=== PATIENT | male | born 1960 | race African-American/Black ===

== ENCOUNTER 2020-02-18 13:32 | Inpatient (IN) | payer MEDICAID, OTHER ==
[~2020-02-18] VITALS: Ht 185.4 cm; Wt 92.8 kg
[2020-02-18] VITALS (7 sets, daily range): BP systolic 107–140; BP diastolic 53–85
[2020-02-18] MEDS ORDERED: SODIUM CHLORIDE 0.9% 1000ML BAG (SEPSIS BOLUS) IV ONE (14:15)
[2020-02-18] MEDS ORDERED: CLINDAMYCIN 600 MG in DEXTROSE 5% WATER 50 ML IV ONE (14:15)
[2020-02-18] MEDS ORDERED: PIPERACILLIN/TAZ 3.375G PREMIX 50 ML IV ONE (14:15)
[2020-02-18] MEDS ORDERED: VANCOMYCIN 1 G PREMIX 200 ML IV ONE (14:15)
[2020-02-18] MEDS ORDERED: CLINDAMYCIN 600MG PREMIX 50 ML IV SCH (14:45)
[2020-02-18 15:07] LABS: HEMATOCRIT. 31.3 % (42.0-52.0); HEMOGLOBIN. 10.1 g/dL (14.0-18.0); MEAN CORPUSCULAR HEMOGLOBIN 24.3 pg (28.0-32.0); MEAN CORPUSCULAR VOLUME 75.5 fL (80.0-94.0); MEAN PLATELET VOLUME 8.6 fl (7.4-10.4); PLATELET 367 x1000/uL (130-400); RED BLOOD CELL COUNT 4.15 mill/uL (4.7-6.1); RED CELL DISTRIBUTION WIDTH 15.7 % (11.6-14.6)
[2020-02-18 15:12] LABS: CHLORIDE 99 mEq/L (98-107)
[2020-02-18 15:16] LABS: INR 1.3; PROTHROMBIN TIME 13.4 sec (9.6-11.0)
[2020-02-18 15:18] LABS: CLARITY URINE CLEAR (CLEAR); COLOR URINE YELLOW (YELLOW); KETONES URINE 1+ (NEGATIVE); LEUKOCYTE ESTERASE URINE NEGATIVE (NEGATIVE); NITRITE URINE NEGATIVE (NEGATIVE); OCCULT BLOOD URINE NEGATIVE (NEGATIVE); PROTEIN URINE NEGATIVE (NEGATIVE); SPECIFIC GRAVITY URINE 1.027 (1.005-1.030)
[2020-02-18 16:06] LABS: PLATELET ESTIMATE NORMAL
[2020-02-18] MEDS ORDERED: INSULIN REGULAR (HUMULIN R) 300UNITS/3ML ONE (17:05)
[2020-02-18] MEDS ORDERED: FENTANYL CITRATE/PF 50MCG/ML 2ML VIAL ONE (17:30)
[2020-02-18] MEDS ORDERED: MIDAZOLAM HCL 2 MG/2 ML VIAL ONE (17:31)
[2020-02-18] MEDS ORDERED: LIDOCAINE HCL/PF 1% 10 MG/ML 5ML VIAL ONE (17:34)
[2020-02-18] MEDS ORDERED: PROPOFOL 200MG/20ML VIAL IV ONE (17:34)
[2020-02-18] MEDS ORDERED: ROCURONIUM BROMIDE 10MG/ML VIAL 5ML IV ONE (17:35)
[2020-02-18] MEDS ORDERED: SUCCINYLCHOLINE CHLORIDE 200MG/10ML IV ONE (17:35)
[2020-02-18] MEDS ORDERED: BACITRACIN 50,000 UNITS/VIAL ONE ×2 (17:48→18:54)
[2020-02-18] MEDS ORDERED: NORMAL SALINE 0.9% 10 ML SYR ONE ×2 (17:48→18:54)
[2020-02-18] MEDS ORDERED: PHENYLEPHRINE HCL 10 MG/ML 1ML (IV VIAL) IV ONE (17:48)
[2020-02-18] MEDS ORDERED: VANCOMYCIN HCL 1 GM/VIAL ONE (17:48)
[2020-02-18] MEDS ORDERED: CEFAZOLIN SODIUM 1000MG/VIAL ONE (18:10)
[2020-02-18] MEDS ORDERED: GENTAMICIN SULF 40MG/ML 2ML VIAL ONE (18:58)
[2020-02-18] MEDS ORDERED: METOCLOPRAMIDE HCL 10MG/2ML VIAL ONE (19:32)
[2020-02-18] MEDS ORDERED: ONDANSETRON HCL 4MG/2ML INJ ONE (19:32)
[2020-02-18] MEDS ORDERED: HYDROMORPHONE HCL/PF 2MG/ML CPJ IV PRN (20:00)
[2020-02-18] MEDS ORDERED: PIPERACILLIN/TAZ 3.375G PREMIX 50 ML IV SCH (20:15)
[2020-02-18] MEDS ORDERED: ONDANSETRON HCL 4MG/2ML INJ IV PRN (20:48)
[2020-02-18] MEDS ORDERED: SODIUM CHLORIDE 0.9% 1,000 ML IV SCH (20:48)
[2020-02-18] MEDS ORDERED: DEXTROSE 50% WATER 50ML SYRINGE IV PRN (20:49)
[2020-02-18] MEDS ORDERED: ACETAMINOPHEN 650MG SUPP PR PRN (20:52)
[2020-02-18] MEDS: SODIUM CHLORIDE 0.9% 1,000 ML IV SCH (21:00)
[2020-02-18] MEDS ORDERED: IOHEXOL-350 100 ML BOTTLE ONE (21:13)
[2020-02-18] MEDS ORDERED: INSULIN LISPRO 100 UNITS/ML SUBCUT NR (21:30)
[2020-02-18] MEDS: BLOOD SUGAR DIAGNOSTIC STRIP TEST SCH (23:58)
[2020-02-18] MEDS: INSULIN LISPRO 100 UNITS/ML SUBCUT SCH (23:59)
[2020-02-19] VITALS (36 sets, daily range): BP systolic 110–138; BP diastolic 67–79
[2020-02-19 00:53] LABS: HEMATOCRIT. 30.1 % (42.0-52.0); HEMOGLOBIN. 9.7 g/dL (14.0-18.0); MEAN CORPUSCULAR HEMOGLOBIN 24.2 pg (28.0-32.0); MEAN CORPUSCULAR VOLUME 75.1 fL (80.0-94.0); MEAN PLATELET VOLUME 8.5 fl (7.4-10.4); PLATELET 330 x1000/uL (130-400); RED BLOOD CELL COUNT 4.01 mill/uL (4.7-6.1); RED CELL DISTRIBUTION WIDTH 15.5 % (11.6-14.6)
[2020-02-19] MEDS: PIPERACILLIN/TAZOBACTAM 3.375 G in DEXT 5% WATER 100 ML IV SCH ×4 (01:42→18:44)
[2020-02-19] MEDS: VANCOMYCIN 1 G PREMIX 200 ML IV SCH ×3 (02:00→17:37)
[2020-02-19 05:46] LABS: PLATELET ESTIMATE NORMAL
[2020-02-19] MEDS: BLOOD SUGAR DIAGNOSTIC STRIP TEST SCH ×4 (07:43→21:00)
[2020-02-19 08:10] LABS: HEMATOCRIT. 27.9 % (42.0-52.0); MEAN CORPUSCULAR VOLUME 74.3 fL (80.0-94.0); MEAN PLATELET VOLUME 8.5 fl (7.4-10.4); PLATELET 326 x1000/uL (130-400); RED BLOOD CELL COUNT 3.76 mill/uL (4.7-6.1); RED CELL DISTRIBUTION WIDTH 15.5 % (11.6-14.6)
[2020-02-19] MEDS: SODIUM CHLORIDE 0.9% 1,000 ML IV SCH ×2 (08:10→17:37)
[2020-02-19] MEDS: INSULIN LISPRO 100 UNITS/ML SUBCUT SCH ×4 (08:12→21:28)
[2020-02-19 08:18] LABS: CHLORIDE 106 mEq/L (98-107)
[2020-02-19 08:24] LABS: PHOSPHORUS 3.5 mg/dL (2.5-4.9)
[2020-02-19] MEDS ORDERED: PANTOPRAZOLE SODIUM 40 MG/VIAL IV SCH (09:00)
[2020-02-19] MEDS ORDERED: INSULIN GLARGINE UD 100 UNITS/ML SYR SUBCUT SCH (14:00)
[2020-02-19 14:54] LABS: PLATELET ESTIMATE NORMAL
[2020-02-19] MEDS ORDERED: LINEZOLID 600 MG PREMIX 300 ML IV SCH (20:00)
[2020-02-19] MEDS: INSULIN GLARGINE UD 100 UNITS/ML SYR SUBCUT SCH (22:50)
[2020-02-20] VITALS: BP 111/64
[2020-02-20] MEDS: PIPERACILLIN/TAZOBACTAM 3.375 G in DEXT 5% WATER 100 ML IV SCH ×4 (00:56→18:07)
[2020-02-20] MEDS: SODIUM CHLORIDE 0.9% 1,000 ML IV SCH ×2 (02:27→12:58)
[2020-02-20 04:00] VITALS: BP 106/64
[2020-02-20] MEDS: OMEPRAZOLE 20MG CAPSULE EXTENDED RELEASE PO SCH ×2 (06:22→21:56)
[2020-02-20] MEDS: BLOOD SUGAR DIAGNOSTIC STRIP TEST SCH ×4 (06:22→21:56)
[2020-02-20] MEDS: INSULIN LISPRO 100 UNITS/ML SUBCUT SCH ×4 (06:27→21:00)
[2020-02-20 07:28] LABS: HEMOGLOBIN. 7.9 g/dL (14.0-18.0); MEAN CORPUSCULAR HEMOGLOBIN 24.2 pg (28.0-32.0); MEAN CORPUSCULAR VOLUME 74.1 fL (80.0-94.0); MEAN PLATELET VOLUME 8.2 fl (7.4-10.4); PLATELET 285 x1000/uL (130-400); RED BLOOD CELL COUNT 3.25 mill/uL (4.7-6.1); RED CELL DISTRIBUTION WIDTH 15.3 % (11.6-14.6)
[2020-02-20 07:51] LABS: CHLORIDE 102 mEq/L (98-107)
[2020-02-20 08:00] VITALS: BP 119/72
[2020-02-20 08:00] LABS: PHOSPHORUS 2.8 mg/dL (2.5-4.9)
[2020-02-20] MEDS: LINEZOLID 600 MG PREMIX 300 ML IV SCH ×2 (09:44→21:56)
[2020-02-20] MEDS: INSULIN GLARGINE UD 100 UNITS/ML SYR SUBCUT SCH ×2 (09:46→22:00)
[2020-02-20 12:00] VITALS: BP 113/67
[2020-02-20 12:20] LABS: PLATELET ESTIMATE NORMAL
[2020-02-20 16:00] VITALS: BP 118/73
[2020-02-20 20:00] VITALS: BP 112/64
[2020-02-21] VITALS: BP 118/68
[2020-02-21] MEDS: PIPERACILLIN/TAZOBACTAM 3.375 G in DEXT 5% WATER 100 ML IV SCH ×3 (00:52→13:24)
[2020-02-21] MEDS: SODIUM CHLORIDE 0.9% 1,000 ML IV SCH ×3 (00:53→18:25)
[2020-02-21 04:00] VITALS: BP 119/74
[2020-02-21] MEDS: OMEPRAZOLE 20MG CAPSULE EXTENDED RELEASE PO SCH ×2 (06:43→21:52)
[2020-02-21] MEDS: BLOOD SUGAR DIAGNOSTIC STRIP TEST SCH ×4 (06:43→21:00)
[2020-02-21] MEDS: INSULIN LISPRO 100 UNITS/ML SUBCUT SCH ×4 (06:53→21:00)
[2020-02-21 08:00] VITALS: BP 122/72
[2020-02-21] MEDS ORDERED: PNEUMOCOCCAL 23-VAL P-SAC VAC 0.5 ML IM ONE (08:00)
[2020-02-21] MEDS: LINEZOLID 600 MG PREMIX 300 ML IV SCH ×2 (08:34→22:07)
[2020-02-21] MEDS: INSULIN GLARGINE UD 100 UNITS/ML SYR SUBCUT SCH ×2 (11:04→21:53)
[2020-02-21 12:00] VITALS: BP 125/81
[2020-02-21 16:00] VITALS: BP 125/78
[2020-02-21] MEDS: CEFTRIAXONE 2 G in DEXTROSE 5% WATER 50 ML IV SCH (18:00)
[2020-02-21 20:00] VITALS: BP 122/70
[2020-02-22] VITALS: BP 118/74
[2020-02-22 04:00] VITALS: BP 137/74
[2020-02-22] MEDS: SODIUM CHLORIDE 0.9% 1,000 ML IV SCH ×2 (05:23→16:01)
[2020-02-22] MEDS: BLOOD SUGAR DIAGNOSTIC STRIP TEST SCH ×4 (06:10→21:16)
[2020-02-22] MEDS: INSULIN LISPRO 100 UNITS/ML SUBCUT SCH ×4 (06:11→21:00)
[2020-02-22] MEDS: OMEPRAZOLE 20MG CAPSULE EXTENDED RELEASE PO SCH ×2 (06:24→21:46)
[2020-02-22 08:00] VITALS: BP 149/86
[2020-02-22] MEDS: LINEZOLID 600 MG PREMIX 300 ML IV SCH ×2 (09:27→21:47)
[2020-02-22] MEDS: INSULIN GLARGINE UD 100 UNITS/ML SYR SUBCUT SCH ×2 (10:05→21:45)
[2020-02-22 12:00] VITALS: BP 144/80
[2020-02-22 16:00] VITALS: BP 143/76
[2020-02-22 17:07] LABS: HEMATOCRIT. 28.4 % (42.0-52.0); HEMOGLOBIN. 9.4 g/dL (14.0-18.0); MEAN CORPUSCULAR HEMOGLOBIN 24.3 pg (28.0-32.0); MEAN CORPUSCULAR VOLUME 73.8 fL (80.0-94.0); MEAN PLATELET VOLUME 7.8 fl (7.4-10.4); PLATELET 339 x1000/uL (130-400); RED BLOOD CELL COUNT 3.85 mill/uL (4.7-6.1); RED CELL DISTRIBUTION WIDTH 15.5 % (11.6-14.6)
[2020-02-22] MEDS: CEFTRIAXONE 2 G in DEXTROSE 5% WATER 50 ML IV SCH (17:16)
[2020-02-22 17:54] LABS: PLATELET ESTIMATE NORMAL
[2020-02-22 20:00] VITALS: BP 158/91
[2020-02-23] VITALS: BP 140/82
[2020-02-23] MEDS: DEXTROSE 50% WATER 50ML SYRINGE IV PRN ×2 (04:44→15:31)
[2020-02-23] MEDS: SODIUM CHLORIDE 0.9% 1,000 ML IV SCH ×2 (05:12→21:19)
[2020-02-23] MEDS: INSULIN LISPRO 100 UNITS/ML SUBCUT SCH ×4 (05:45→21:00)
[2020-02-23] MEDS: BLOOD SUGAR DIAGNOSTIC STRIP TEST SCH ×4 (05:45→21:20)
[2020-02-23] MEDS: OMEPRAZOLE 20MG CAPSULE EXTENDED RELEASE PO SCH (05:50)
[2020-02-23 08:00] VITALS: BP 143/89
[2020-02-23] MEDS ORDERED: INSULIN GLARGINE UD 100 UNITS/ML SYR SUBCUT SCH (10:00)
[2020-02-23] MEDS: LINEZOLID 600 MG PREMIX 300 ML IV SCH ×2 (10:06→21:19)
[2020-02-23 12:00] VITALS: BP 143/83
[2020-02-23 14:00] VITALS: BP 140/79
[2020-02-23 16:00] VITALS: BP_SYST 151; BP_DIAS 71; BP_DIAS 88
[2020-02-23] MEDS: CEFTRIAXONE 2 G in DEXTROSE 5% WATER 50 ML IV SCH (17:12)
[2020-02-23 20:00] VITALS: BP 148/88
[2020-02-23] MEDS: FAMOTIDINE 20MG TABLET PO SCH (21:19)
[2020-02-24] VITALS: BP 132/82
[2020-02-24 04:00] VITALS: BP 153/85
[2020-02-24 07:14] LABS: BASOPHILS % 0.4 % (0.0-2.0); EOSINOPHILS % 2.8 % (0.0-5.0); HEMATOCRIT. 29.8 % (42.0-52.0); HEMOGLOBIN. 9.8 g/dL (14.0-18.0); LYMPHOCYTES % 12.7 % (20.0-50.0); MEAN CORPUSCULAR HEMOGLOBIN 24.3 pg (28.0-32.0); MEAN CORPUSCULAR VOLUME 74.2 fL (80.0-94.0); MEAN PLATELET VOLUME 7.9 fl (7.4-10.4); MONOCYTES % 8.6 % (2.0-8.0); NEUTROPHILS % 75.5 % (40.0-76.0); PLATELET 365 x1000/uL (130-400); RED BLOOD CELL COUNT 4.02 mill/uL (4.7-6.1); RED CELL DISTRIBUTION WIDTH 15.5 % (11.6-14.6)
[2020-02-24 07:35] LABS: CHLORIDE 110 mEq/L (98-107)
[2020-02-24] MEDS: BLOOD SUGAR DIAGNOSTIC STRIP TEST SCH ×4 (07:41→21:52)
[2020-02-24] MEDS: INSULIN LISPRO 100 UNITS/ML SUBCUT SCH ×4 (07:41→21:00)
[2020-02-24 08:00] VITALS: BP 146/88
[2020-02-24] MEDS: FAMOTIDINE 20MG TABLET PO SCH ×2 (09:00→21:55)
[2020-02-24 12:00] VITALS: BP 127/76
[2020-02-24] MEDS: LINEZOLID 600 MG PREMIX 300 ML IV SCH ×2 (14:12→21:55)
[2020-02-24 16:00] VITALS: BP 130/80
[2020-02-24] MEDS: SODIUM CHLORIDE 0.9% 1,000 ML IV SCH (16:49)
[2020-02-24] MEDS: CEFTRIAXONE 2 G in DEXTROSE 5% WATER 50 ML IV SCH (18:26)
[2020-02-24 20:00] VITALS: BP 127/80
[2020-02-25] VITALS: BP 135/84
[2020-02-25 04:00] VITALS: BP 100/57
[2020-02-25] MEDS: BLOOD SUGAR DIAGNOSTIC STRIP TEST SCH ×4 (07:29→20:23)
[2020-02-25 08:00] VITALS: BP 133/81
[2020-02-25] MEDS: FAMOTIDINE 20MG TABLET PO SCH ×2 (09:00→20:23)
[2020-02-25] MEDS: INSULIN LISPRO 100 UNITS/ML SUBCUT SCH ×4 (09:01→21:20)
[2020-02-25] MEDS: LINEZOLID 600 MG PREMIX 300 ML IV SCH ×2 (09:04→20:23)
[2020-02-25 12:00] VITALS: BP 137/82
[2020-02-25] MEDS: SODIUM CHLORIDE 0.9% 1,000 ML IV SCH (12:35)
[2020-02-25 16:00] VITALS: BP 140/82
[2020-02-25] MEDS: CEFTRIAXONE 2 G in DEXTROSE 5% WATER 50 ML IV SCH (17:35)
[2020-02-25 20:00] VITALS: BP 143/85
[2020-02-26] VITALS: BP 131/84
[2020-02-26 04:00] VITALS: BP 143/81
[2020-02-26] MEDS: BLOOD SUGAR DIAGNOSTIC STRIP TEST SCH ×4 (06:48→20:48)
[2020-02-26] MEDS ORDERED: GLIMEPIRIDE 1MG TABLET PO SCH (07:20)
[2020-02-26 08:00] VITALS: BP 129/82
[2020-02-26] MEDS: INSULIN LISPRO 100 UNITS/ML SUBCUT SCH ×4 (08:46→21:25)
[2020-02-26] MEDS: LINEZOLID 600 MG PREMIX 300 ML IV SCH ×2 (08:55→20:48)
[2020-02-26] MEDS: ASCORBIC ACID 500 MG TABLET PO SCH (08:56)
[2020-02-26] MEDS: ZINC SULFATE 220 MG ( 50 ) CAPSULE PO SCH (08:56)
[2020-02-26] MEDS: FAMOTIDINE 20MG TABLET PO SCH ×2 (08:56→20:48)
[2020-02-26] MEDS: MULTIVITAMINS,THER W-MINERALS TABLET PO SCH (08:59)
[2020-02-26] MEDS: SODIUM CHLORIDE 0.9% 1,000 ML IV SCH ×2 (09:05→18:51)
[2020-02-26 12:00] VITALS: BP 133/81
[2020-02-26 16:00] VITALS: BP 136/78
[2020-02-26] MEDS: CEFTRIAXONE 2 G in DEXTROSE 5% WATER 50 ML IV SCH (18:22)
[2020-02-26 20:00] VITALS: BP 124/76
[2020-02-27] VITALS: BP 121/81
[2020-02-27 04:00] VITALS: BP 138/83
[2020-02-27] MEDS: GLIMEPIRIDE 1MG TABLET PO SCH (06:27)
[2020-02-27] MEDS: BLOOD SUGAR DIAGNOSTIC STRIP TEST SCH ×4 (06:27→20:38)
[2020-02-27 08:00] VITALS: BP 138/83
[2020-02-27] MEDS: ASCORBIC ACID 500 MG TABLET PO SCH (08:44)
[2020-02-27] MEDS: MULTIVITAMINS,THER W-MINERALS TABLET PO SCH (08:44)
[2020-02-27] MEDS: ZINC SULFATE 220 MG ( 50 ) CAPSULE PO SCH (08:44)
[2020-02-27] MEDS: LINEZOLID 600 MG PREMIX 300 ML IV SCH ×2 (08:45→21:19)
[2020-02-27] MEDS: FAMOTIDINE 20MG TABLET PO SCH ×2 (09:00→21:19)
[2020-02-27] MEDS: INSULIN LISPRO 100 UNITS/ML SUBCUT SCH ×4 (09:11→20:38)
[2020-02-27 12:00] VITALS: BP 142/83
[2020-02-27] MEDS: SODIUM CHLORIDE 0.9% 1,000 ML IV SCH ×2 (14:49→21:20)
[2020-02-27 16:00] VITALS: BP 147/90
[2020-02-27] MEDS: CEFTRIAXONE 2 G in DEXTROSE 5% WATER 50 ML IV SCH (18:27)
[2020-02-27 20:00] VITALS: BP 143/89
[2020-02-27] MEDS: INSULIN GLARGINE UD 100 UNITS/ML SYR SUBCUT SCH (21:19)
[2020-02-28 00:31] VITALS: BP 138/85
[2020-02-28 04:00] VITALS: BP 146/90
[2020-02-28] MEDS: GLIMEPIRIDE 1MG TABLET PO SCH (06:26)
[2020-02-28] MEDS: BLOOD SUGAR DIAGNOSTIC STRIP TEST SCH ×4 (06:28→21:27)
[2020-02-28 08:00] VITALS: BP 150/97
[2020-02-28] MEDS: MULTIVITAMINS,THER W-MINERALS TABLET PO SCH (08:43)
[2020-02-28] MEDS: ZINC SULFATE 220 MG ( 50 ) CAPSULE PO SCH (08:43)
[2020-02-28] MEDS: ASCORBIC ACID 500 MG TABLET PO SCH (08:43)
[2020-02-28] MEDS: LINEZOLID 600 MG PREMIX 300 ML IV SCH (08:43)
[2020-02-28] MEDS: INSULIN LISPRO 100 UNITS/ML SUBCUT SCH ×4 (09:05→21:00)
[2020-02-28] MEDS: FAMOTIDINE 10MG TABLET PO SCH ×2 (10:46→21:25)
[2020-02-28 12:00] VITALS: BP 153/95
[2020-02-28 16:00] VITALS: BP 147/94
[2020-02-28] MEDS: CEFTRIAXONE 2 G in DEXTROSE 5% WATER 50 ML IV SCH (17:43)
[2020-02-28] MEDS: SODIUM CHLORIDE 0.9% 1,000 ML IV SCH (17:44)
[2020-02-28] MEDS ORDERED: LOSARTAN POTASSIUM 25 MG TABLET PO NR (18:00)
[2020-02-28] MEDS ORDERED: FUROSEMIDE 40MG/4ML VIAL IVP NR (18:00)
[2020-02-28 20:00] VITALS: BP 146/90
[2020-02-28] MEDS: LINEZOLID 600MG TABLET PO SCH (21:25)
[2020-02-28] MEDS: CARVEDILOL 6.25 MG TABLET PO SCH (21:27)
[2020-02-28] MEDS: INSULIN GLARGINE UD 100 UNITS/ML SYR SUBCUT SCH (22:08)
[2020-02-29] VITALS: BP 136/86
[2020-02-29 04:00] VITALS: BP 128/82
[2020-02-29 06:54] LABS: EOSINOPHILS % 1.8 % (0.0-5.0); HEMOGLOBIN. 8.1 g/dL (14.0-18.0); LYMPHOCYTES % 13.5 % (20.0-50.0); MEAN CORPUSCULAR HEMOGLOBIN 25.2 pg (28.0-32.0); MEAN PLATELET VOLUME 7.5 fl (7.4-10.4); MONOCYTES % 7.9 % (2.0-8.0); NEUTROPHILS % 75.8 % (40.0-76.0); PLATELET 249 x1000/uL (130-400); RED CELL DISTRIBUTION WIDTH 15.7 % (11.6-14.6)
[2020-02-29 07:09] LABS: CHLORIDE 109 mEq/L (98-107)
[2020-02-29] MEDS: INSULIN LISPRO 100 UNITS/ML SUBCUT SCH ×4 (07:10→21:06)
[2020-02-29] MEDS: BLOOD SUGAR DIAGNOSTIC STRIP TEST SCH ×4 (07:10→21:06)
[2020-02-29 07:29] LABS: PHOSPHORUS 4.2 mg/dL (2.5-4.9)
[2020-02-29 08:00] VITALS: BP 130/86
[2020-02-29] MEDS: ASCORBIC ACID 500 MG TABLET PO SCH (08:38)
[2020-02-29] MEDS: ZINC SULFATE 220 MG ( 50 ) CAPSULE PO SCH (08:39)
[2020-02-29] MEDS: FAMOTIDINE 10MG TABLET PO SCH ×2 (08:39→20:46)
[2020-02-29] MEDS: GLIMEPIRIDE 1MG TABLET PO SCH (08:39)
[2020-02-29] MEDS: LOSARTAN POTASSIUM 25 MG TABLET PO SCH (08:39)
[2020-02-29] MEDS: CARVEDILOL 6.25 MG TABLET PO SCH ×2 (08:40→20:46)
[2020-02-29] MEDS: FUROSEMIDE 40MG/4ML VIAL IVP SCH (08:40)
[2020-02-29] MEDS ORDERED: METOLAZONE 10MG TABLET PO SCH (09:15)
[2020-02-29] MEDS: POTASSIUM CHLORIDE 20MEQ TABLET SR PO SCH (10:13)
[2020-02-29] MEDS: LINEZOLID 600MG TABLET PO SCH ×2 (10:13→20:46)
[2020-02-29] MEDS: MULTIVITAMINS,THER W-MINERALS TABLET PO SCH (10:14)
[2020-02-29 12:00] VITALS: BP 139/86
[2020-02-29] MEDS: FERROUS SULFATE 325MG TABLET PO SCH ×2 (12:25→17:58)
[2020-02-29 16:00] VITALS: BP 126/81
[2020-02-29] MEDS ORDERED: MAGNESIUM 2 G PREMIX 50 ML IV SCH (16:00)
[2020-02-29 20:00] VITALS: BP 132/87
[2020-02-29] MEDS: CEFTRIAXONE 2 G in DEXTROSE 5% WATER 50 ML IV SCH (20:46)
[2020-02-29] MEDS: INSULIN GLARGINE UD 100 UNITS/ML SYR SUBCUT SCH (21:06)
[2020-03-01] VITALS: BP 119/68
[2020-03-01 04:00] VITALS: BP 117/74
[2020-03-01] MEDS: GLIMEPIRIDE 1MG TABLET PO SCH (05:45)
[2020-03-01] MEDS: BLOOD SUGAR DIAGNOSTIC STRIP TEST SCH ×4 (05:45→21:47)
[2020-03-01] MEDS: INSULIN LISPRO 100 UNITS/ML SUBCUT SCH ×4 (07:18→21:00)
[2020-03-01 08:00] VITALS: BP 124/81
[2020-03-01] MEDS: FERROUS SULFATE 325MG TABLET PO SCH ×3 (08:43→17:55)
[2020-03-01] MEDS: LOSARTAN POTASSIUM 25 MG TABLET PO SCH (08:43)
[2020-03-01] MEDS: ASCORBIC ACID 500 MG TABLET PO SCH (08:43)
[2020-03-01] MEDS: POTASSIUM CHLORIDE 20MEQ TABLET SR PO SCH (08:43)
[2020-03-01] MEDS: FUROSEMIDE 40MG/4ML VIAL IVP SCH (08:43)
[2020-03-01] MEDS: MULTIVITAMINS,THER W-MINERALS TABLET PO SCH (08:43)
[2020-03-01] MEDS: FAMOTIDINE 10MG TABLET PO SCH ×2 (09:21→21:45)
[2020-03-01] MEDS: ZINC SULFATE 220 MG ( 50 ) CAPSULE PO SCH (09:21)
[2020-03-01] MEDS: CARVEDILOL 6.25 MG TABLET PO SCH (09:21)
[2020-03-01] MEDS: LINEZOLID 600MG TABLET PO SCH ×2 (09:59→21:46)
[2020-03-01 12:00] VITALS: BP 130/84
[2020-03-01 16:00] VITALS: BP 131/84
[2020-03-01] MEDS: CEFTRIAXONE 2 G in DEXTROSE 5% WATER 50 ML IV SCH (17:55)
[2020-03-01 20:00] VITALS: BP 124/76
[2020-03-01] MEDS: CARVEDILOL 12.5MG TABLET PO SCH (21:45)
[2020-03-01] MEDS: INSULIN GLARGINE UD 100 UNITS/ML SYR SUBCUT SCH (21:56)
[2020-03-02] VITALS: BP 121/74
[2020-03-02 04:00] VITALS: BP 116/69
[2020-03-02 06:20] LABS: CHLORIDE 103 mEq/L (98-107)
[2020-03-02 06:29] LABS: PHOSPHORUS 3.9 mg/dL (2.5-4.9)
[2020-03-02] MEDS: GLIMEPIRIDE 1MG TABLET PO SCH (06:38)
[2020-03-02 07:22] LABS: BASOPHILS % 1.3 % (0.0-2.0); EOSINOPHILS % 2.2 % (0.0-5.0); HEMATOCRIT. 23.5 % (42.0-52.0); HEMOGLOBIN. 7.9 g/dL (14.0-18.0); LYMPHOCYTES % 17.6 % (20.0-50.0); MEAN CORPUSCULAR HEMOGLOBIN 25.2 pg (28.0-32.0); MEAN CORPUSCULAR VOLUME 75.2 fL (80.0-94.0); MEAN PLATELET VOLUME 7.4 fl (7.4-10.4); MONOCYTES % 8.8 % (2.0-8.0); NEUTROPHILS % 70.1 % (40.0-76.0); PLATELET 226 x1000/uL (130-400); RED BLOOD CELL COUNT 3.13 mill/uL (4.7-6.1); RED CELL DISTRIBUTION WIDTH 15.3 % (11.6-14.6)
[2020-03-02] MEDS: BLOOD SUGAR DIAGNOSTIC STRIP TEST SCH ×4 (07:30→21:06)
[2020-03-02] MEDS: INSULIN LISPRO 100 UNITS/ML SUBCUT SCH ×4 (07:50→21:10)
[2020-03-02 08:00] VITALS: BP 120/76
[2020-03-02] MEDS: FUROSEMIDE 40MG/4ML VIAL IVP SCH (08:51)
[2020-03-02] MEDS: FERROUS SULFATE 325MG TABLET PO SCH ×3 (08:52→17:23)
[2020-03-02] MEDS: POTASSIUM CHLORIDE 20MEQ TABLET SR PO SCH (08:52)
[2020-03-02] MEDS: LOSARTAN POTASSIUM 25 MG TABLET PO SCH (08:52)
[2020-03-02] MEDS: ZINC SULFATE 220 MG ( 50 ) CAPSULE PO SCH (08:52)
[2020-03-02] MEDS: FAMOTIDINE 10MG TABLET PO SCH ×2 (08:52→21:02)
[2020-03-02] MEDS: LINEZOLID 600MG TABLET PO SCH ×2 (08:52→21:02)
[2020-03-02] MEDS: MULTIVITAMINS,THER W-MINERALS TABLET PO SCH (08:52)
[2020-03-02] MEDS: ASCORBIC ACID 500 MG TABLET PO SCH (08:53)
[2020-03-02] MEDS: CARVEDILOL 12.5MG TABLET PO SCH ×2 (08:53→21:03)
[2020-03-02 11:38] LABS: TOTAL IRON BINDING CAPACITY 150 ug/dL (250-450)
[2020-03-02 12:00] VITALS: BP 134/81
[2020-03-02] MEDS ORDERED: MAGNESIUM 2 G PREMIX 50 ML IV SCH (13:00)
[2020-03-02 16:00] VITALS: BP 122/75
[2020-03-02] MEDS: CEFTRIAXONE 2 G in DEXTROSE 5% WATER 50 ML IV SCH (17:23)
[2020-03-02 20:00] VITALS: BP 115/70
[2020-03-02] MEDS: INSULIN GLARGINE UD 100 UNITS/ML SYR SUBCUT SCH (21:11)
[2020-03-03] VITALS: BP 113/72
[2020-03-03 04:00] VITALS: BP 117/72
[2020-03-03] MEDS: GLIMEPIRIDE 1MG TABLET PO SCH (06:46)
[2020-03-03] MEDS: BLOOD SUGAR DIAGNOSTIC STRIP TEST SCH ×4 (06:51→20:58)
[2020-03-03] MEDS: INSULIN LISPRO 100 UNITS/ML SUBCUT SCH ×4 (07:50→21:05)
[2020-03-03] MEDS: ZINC SULFATE 220 MG ( 50 ) CAPSULE PO SCH (09:22)
[2020-03-03] MEDS: POTASSIUM CHLORIDE 20MEQ TABLET SR PO SCH (09:22)
[2020-03-03] MEDS: LINEZOLID 600MG TABLET PO SCH ×2 (09:22→21:54)
[2020-03-03] MEDS: ASCORBIC ACID 500 MG TABLET PO SCH (09:22)
[2020-03-03] MEDS: LOSARTAN POTASSIUM 25 MG TABLET PO SCH (09:22)
[2020-03-03] MEDS: FUROSEMIDE 40MG/4ML VIAL IVP SCH (09:22)
[2020-03-03] MEDS: CARVEDILOL 12.5MG TABLET PO SCH ×2 (09:23→20:59)
[2020-03-03] MEDS: FERROUS SULFATE 325MG TABLET PO SCH ×3 (09:24→17:34)
[2020-03-03] MEDS: FAMOTIDINE 10MG TABLET PO SCH ×2 (09:45→20:59)
[2020-03-03] MEDS: MULTIVITAMINS,THER W-MINERALS TABLET PO SCH (09:45)
[2020-03-03 12:00] VITALS: BP 129/83
[2020-03-03 16:00] VITALS: BP 114/72
[2020-03-03] MEDS: CEFTRIAXONE 2 G in DEXTROSE 5% WATER 50 ML IV SCH (17:34)
[2020-03-03 20:27] VITALS: BP 107/61
[2020-03-03] MEDS: INSULIN GLARGINE UD 100 UNITS/ML SYR SUBCUT SCH (21:53)
[2020-03-04] VITALS: BP 109/67
[2020-03-04 04:00] VITALS: BP 114/67
[2020-03-04] MEDS: BLOOD SUGAR DIAGNOSTIC STRIP TEST SCH ×4 (06:22→21:23)
[2020-03-04] MEDS: GLIMEPIRIDE 1MG TABLET PO SCH (06:23)
[2020-03-04] MEDS: INSULIN LISPRO 100 UNITS/ML SUBCUT SCH ×4 (07:39→21:00)
[2020-03-04 08:00] VITALS: BP 138/78
[2020-03-04] MEDS: CARVEDILOL 12.5MG TABLET PO SCH ×2 (08:43→21:00)
[2020-03-04] MEDS: FAMOTIDINE 10MG TABLET PO SCH (08:43)
[2020-03-04] MEDS: ASCORBIC ACID 500 MG TABLET PO SCH (08:43)
[2020-03-04] MEDS: FERROUS SULFATE 325MG TABLET PO SCH ×3 (08:43→18:29)
[2020-03-04] MEDS: MULTIVITAMINS,THER W-MINERALS TABLET PO SCH (08:43)
[2020-03-04] MEDS: ZINC SULFATE 220 MG ( 50 ) CAPSULE PO SCH (08:44)
[2020-03-04] MEDS: LOSARTAN POTASSIUM 50 MG TABLET PO SCH (08:44)
[2020-03-04] MEDS: POTASSIUM CHLORIDE 20MEQ TABLET SR PO SCH (08:44)
[2020-03-04] MEDS: FUROSEMIDE 40MG TABLET PO SCH (09:38)
[2020-03-04] MEDS: LINEZOLID 600MG TABLET PO SCH ×2 (09:38→21:23)
[2020-03-04 12:00] VITALS: BP 113/70
[2020-03-04 16:00] VITALS: BP 100/59
[2020-03-04] MEDS: CEFTRIAXONE 2 G in DEXTROSE 5% WATER 50 ML IV SCH (16:21)
[2020-03-04 20:00] VITALS: BP 101/63
[2020-03-04] MEDS: FAMOTIDINE 20MG TABLET PO SCH (21:23)
[2020-03-04] MEDS: INSULIN GLARGINE UD 100 UNITS/ML SYR SUBCUT SCH (22:23)
[2020-03-05] VITALS: BP 110/69
[2020-03-05 04:00] VITALS: BP 109/67
[2020-03-05] MEDS: BLOOD SUGAR DIAGNOSTIC STRIP TEST SCH ×4 (06:39→21:00)
[2020-03-05] MEDS: GLIMEPIRIDE 1MG TABLET PO SCH (06:39)
[2020-03-05] MEDS: INSULIN LISPRO 100 UNITS/ML SUBCUT SCH ×3 (06:43→21:00)
[2020-03-05 08:00] VITALS: BP 120/75
[2020-03-05] MEDS: FAMOTIDINE 20MG TABLET PO SCH ×2 (08:59→21:59)
[2020-03-05] MEDS: ASCORBIC ACID 500 MG TABLET PO SCH (09:00)
[2020-03-05] MEDS: CARVEDILOL 12.5MG TABLET PO SCH ×2 (09:00→21:59)
[2020-03-05] MEDS: POTASSIUM CHLORIDE 20MEQ TABLET SR PO SCH (09:00)
[2020-03-05] MEDS: MULTIVITAMINS,THER W-MINERALS TABLET PO SCH (09:00)
[2020-03-05] MEDS: LOSARTAN POTASSIUM 50 MG TABLET PO SCH (09:00)
[2020-03-05] MEDS: FUROSEMIDE 40MG TABLET PO SCH ×2 (09:00→17:01)
[2020-03-05] MEDS: FERROUS SULFATE 325MG TABLET PO SCH ×3 (09:34→17:00)
[2020-03-05] MEDS: LINEZOLID 600MG TABLET PO SCH ×2 (09:35→21:58)
[2020-03-05] MEDS: ZINC SULFATE 220 MG ( 50 ) CAPSULE PO SCH (09:35)
[2020-03-05 12:00] VITALS: BP 115/67
[2020-03-05 16:00] VITALS: BP 118/76
[2020-03-05] MEDS: CEFTRIAXONE 2 G in DEXTROSE 5% WATER 50 ML IV SCH (17:01)
[2020-03-05 20:00] VITALS: BP 117/70
[2020-03-05] MEDS: INSULIN GLARGINE UD 100 UNITS/ML SYR SUBCUT SCH (22:01)
[2020-03-06] VITALS: BP 124/74
[2020-03-06 04:00] VITALS: BP 119/69
[2020-03-06 06:22] LABS: BASOPHILS % 1.3 % (0.0-2.0); EOSINOPHILS % 4.5 % (0.0-5.0); HEMATOCRIT. 24.9 % (42.0-52.0); HEMOGLOBIN. 8.3 g/dL (14.0-18.0); LYMPHOCYTES % 20.3 % (20.0-50.0); MEAN CORPUSCULAR VOLUME 75.5 fL (80.0-94.0); MEAN PLATELET VOLUME 7.6 fl (7.4-10.4); MONOCYTES % 9.3 % (2.0-8.0); NEUTROPHILS % 64.6 % (40.0-76.0); PLATELET 160 x1000/uL (130-400); RED CELL DISTRIBUTION WIDTH 15.4 % (11.6-14.6)
[2020-03-06 06:31] LABS: CHLORIDE 102 mEq/L (98-107)
[2020-03-06 06:37] LABS: PHOSPHORUS 4.2 mg/dL (2.5-4.9)
[2020-03-06] MEDS: GLIMEPIRIDE 1MG TABLET PO SCH (07:08)
[2020-03-06] MEDS: BLOOD SUGAR DIAGNOSTIC STRIP TEST SCH ×4 (07:20→20:59)
[2020-03-06] MEDS: INSULIN LISPRO 100 UNITS/ML SUBCUT SCH ×4 (07:50→21:01)
[2020-03-06 08:00] VITALS: BP 116/73
[2020-03-06] MEDS: POTASSIUM CHLORIDE 20MEQ TABLET SR PO SCH (08:50)
[2020-03-06] MEDS: ASCORBIC ACID 500 MG TABLET PO SCH (08:50)
[2020-03-06] MEDS: ZINC SULFATE 220 MG ( 50 ) CAPSULE PO SCH (08:50)
[2020-03-06] MEDS: MULTIVITAMINS,THER W-MINERALS TABLET PO SCH (08:50)
[2020-03-06] MEDS: FERROUS SULFATE 325MG TABLET PO SCH ×3 (08:50→17:41)
[2020-03-06] MEDS: LOSARTAN POTASSIUM 50 MG TABLET PO SCH (08:50)
[2020-03-06] MEDS: FUROSEMIDE 40MG TABLET PO SCH ×2 (08:50→17:41)
[2020-03-06] MEDS: FAMOTIDINE 20MG TABLET PO SCH ×2 (08:51→20:59)
[2020-03-06] MEDS: CARVEDILOL 12.5MG TABLET PO SCH ×2 (08:51→21:00)
[2020-03-06 12:00] VITALS: BP 122/76
[2020-03-06] MEDS: LINEZOLID 600MG TABLET PO SCH ×2 (12:16→20:59)
[2020-03-06 16:00] VITALS: BP 111/58
[2020-03-06] MEDS: CEFTRIAXONE 2 G in DEXTROSE 5% WATER 50 ML IV SCH (17:40)
[2020-03-06 20:00] VITALS: BP 110/63
[2020-03-06] MEDS: INSULIN GLARGINE UD 100 UNITS/ML SYR SUBCUT SCH (21:58)
[2020-03-07] VITALS: BP 103/56
[2020-03-07 04:00] VITALS: BP 107/63
[2020-03-07] MEDS: BLOOD SUGAR DIAGNOSTIC STRIP TEST SCH ×4 (06:50→21:48)
[2020-03-07] MEDS: FERROUS SULFATE 325MG TABLET PO SCH ×3 (06:51→17:15)
[2020-03-07] MEDS: GLIMEPIRIDE 1MG TABLET PO SCH (06:51)
[2020-03-07] MEDS: INSULIN LISPRO 100 UNITS/ML SUBCUT SCH ×4 (07:01→21:48)
[2020-03-07 08:00] VITALS: BP 130/71
[2020-03-07] MEDS: MULTIVITAMINS,THER W-MINERALS TABLET PO SCH (09:39)
[2020-03-07] MEDS: FAMOTIDINE 20MG TABLET PO SCH ×2 (09:39→21:48)
[2020-03-07] MEDS: POTASSIUM CHLORIDE 20MEQ TABLET SR PO SCH (09:39)
[2020-03-07] MEDS: FUROSEMIDE 40MG TABLET PO SCH ×2 (09:39→17:14)
[2020-03-07] MEDS: LOSARTAN POTASSIUM 50 MG TABLET PO SCH (09:39)
[2020-03-07] MEDS: ZINC SULFATE 220 MG ( 50 ) CAPSULE PO SCH (09:39)
[2020-03-07] MEDS: ASCORBIC ACID 500 MG TABLET PO SCH (09:39)
[2020-03-07] MEDS: CARVEDILOL 12.5MG TABLET PO SCH ×2 (09:40→21:00)
[2020-03-07 12:00] VITALS: BP 133/82
[2020-03-07 16:00] VITALS: BP 112/65
[2020-03-07 20:00] VITALS: BP 110/64
[2020-03-07] MEDS: INSULIN GLARGINE UD 100 UNITS/ML SYR SUBCUT SCH (21:48)
[2020-03-08] VITALS: BP 105/63
[2020-03-08 04:00] VITALS: BP 121/68
[2020-03-08] MEDS: BLOOD SUGAR DIAGNOSTIC STRIP TEST SCH ×2 (06:22→12:37)
[2020-03-08] MEDS: GLIMEPIRIDE 1MG TABLET PO SCH (06:39)
[2020-03-08 08:00] VITALS: BP 118/68
[2020-03-08] MEDS: ZINC SULFATE 220 MG ( 50 ) CAPSULE PO SCH (08:41)
[2020-03-08] MEDS: FUROSEMIDE 40MG TABLET PO SCH (08:41)
[2020-03-08] MEDS: CARVEDILOL 12.5MG TABLET PO SCH (08:41)
[2020-03-08] MEDS: MULTIVITAMINS,THER W-MINERALS TABLET PO SCH (08:41)
[2020-03-08] MEDS: POTASSIUM CHLORIDE 20MEQ TABLET SR PO SCH (08:41)
[2020-03-08] MEDS: FERROUS SULFATE 325MG TABLET PO SCH ×2 (08:41→12:58)
[2020-03-08] MEDS: LOSARTAN POTASSIUM 50 MG TABLET PO SCH (08:41)
[2020-03-08] MEDS: FAMOTIDINE 20MG TABLET PO SCH (08:41)
[2020-03-08] MEDS: ASCORBIC ACID 500 MG TABLET PO SCH (08:42)
[2020-03-08] MEDS: INSULIN LISPRO 100 UNITS/ML SUBCUT SCH ×2 (08:47→12:37)
[2020-03-08 12:00] VITALS: BP 107/68
[2020-03-08 13:05] VITALS: BP 110/68
[2020-03-08 16:00] VITALS: BP 125/70
== END 2020-03-08 16:05 | disposition short-term general hospital (02) | DRG 710 ==
LOC: ER 13:32 → EDBEDREQ 16:58 → OR 17:42 → CANBEDREQ 21:08 → 5EST 22:30 → 5WST 02-19 11:13 → 6EST 02-23 13:47
PROVIDERS: ADMIT Internal Medicine; ATTEND Internal Medicine
PROC: 0Y6C0Z3 Detachment at Right Upper Leg, Low, Open Approach (ICD-10-PCS; principal; 2020-02-18)
PROC: 02HV33Z Insertion of Infusion Device into Superior Vena Cava, Percutaneous Approach (ICD-10-PCS; 2020-02-24)
PROC: B518ZZA Fluoroscopy of Superior Vena Cava, Guidance (ICD-10-PCS; 2020-02-24)
PROC: B548ZZA Ultrasonography of Superior Vena Cava, Guidance (ICD-10-PCS; 2020-02-24)
DX: A41.51 Sepsis due to Escherichia coli [E. coli] (principal); A48.0 Gas gangrene; M72.6 Necrotizing fasciitis; I50.23 Acute on chronic systolic (congestive) heart failure; I74.3 Embolism and thrombosis of arteries of the lower extremities; E11.52 Type 2 diabetes mellitus with diabetic peripheral angiopathy with gangrene; E11.65 Type 2 diabetes mellitus with hyperglycemia; I11.0 Hypertensive heart disease with heart failure; Z20.828 Contact with and (suspected) exposure to other viral communicable diseases; T79.7XXA Traumatic subcutaneous emphysema, initial encounter; X58.XXXA Exposure to other specified factors, initial encounter; Y93.89 Activity, other specified; Y92.89 Other specified places as the place of occurrence of the external cause; Y99.8 Other external cause status; Z83.3 Family history of diabetes mellitus; Z89.612 Acquired absence of left leg above knee
CPT/HCPCS: 36415; 36573; 71045; 72191; 73630; 73706; 76937; 80048; 80053; 80202; 81003; 82040; 82962; 83036; 83540; 83550; 83605; 83735; 84100; 84134; 84145; 84484; 85025; 86140; 86850; 86900; 86920; 87070; 87075; 87077; 87186; 88307; 88311; 93005; 93306; 96365; 97110; 97162; 97166; 97530; 97535; 99291; C1725; C9113; J0330; J0690; J0696; J1580; J1815; J1940; J2020; J2250; J2370; J2405; J2543; J2704; J2765; J3010; J3370; J3475; J3490; J7030; J7060; Q9967; U0003-CS